=== PATIENT | male | born 2000 | race African-American/Black ===

== ENCOUNTER 2024-11-17 20:47 | Emergency (ER) | payer MEDICAID, SELFPAY ==
[2024-11-17 20:56] VITALS: BP 135/92; PULSE 81; RESP 20; TEMP 36.3; O2SAT 100
--- NOTE | 2024-11-17 23:00 | PC.NURSE ---
pt to triage desk stating, I am going to leave I think I am feeling fine . pt left ambulatory with steady unassisted gat with chestnut counselor. pt appeared in no distress at this time. this rn explained the risks of leaving before seeing provider.
== END 2024-11-18 00:54 | disposition left against medical advice (07) ==
DX: R05.9 Cough, unspecified (principal)
CPT/HCPCS: 99199

== ENCOUNTER 2025-01-11 01:42 | Emergency (ER) | payer SELFPAY ==
--- OUTSIDE RECORDS SUMMARY | 2025-01-11 01:44 | XMS_ITS ---
Author Organization [facility] Address [address] [place] [address] Care Team Providers Care Warp Starter Name Role Phone Samuel Sheridan Primary Care Provider Kaelyn Miguel [phone] Allergies Allergen (clinical drug ingredient) Drug/Non Drug Allergy documented on EMR Reaction Allergy Type Onset Date Status No Known Drug Allergy Unknown Drug Allergy Active REASON FOR VISIT 2 Month Psych F/U & Med Refill Medications Medication SIG (Take, Route, Frequency, Duration) Notes Start Date End Date Status Divalproex Sodium 500 MG 1 tablet Orally twice a day for 30 days Active FLUoxetine HCl 20 MG 1 capsule Orally On ce a day for 30 days Active Acetaminophen 500 MG 1 tablet as needed Orally every 6 hrs Active Albuterol Sulfate HFA 108 (90 Base) MCG/ACT 1 puff as needed Inhalation every 4 hrs 07/30/2024 Active Social History Tobacco Use: Social History Observation Description Date Details (start date - stop date) Never Smoker NA - NA Sex Assigned At : Social History Observation Description Sex Assigned At Male Tobacco Control (Standard) Question Answer Notes Tobacco use: Nonsmoker Vital Signs Weight 141.2 lbs 12/23/2024 Height 72 in 12/23/2024 BMI 19.15 kg/m2 12/23/2024 Blood pressure systolic 126 mm Hg 12/23/19 25 Blood pressure diastolic 76 mm Hg 025 Heart Rate 85 /min 12/23/2024 Oximetry 98 % 12/23/2024 Encounters Encounter Location Date Provider Diagnosis [facility] [address] [place] [address] 12/23/2024 Kaelyn Miguel Bipolar 1 disorder F31.9 Assessments Encounter Date Diagnosis (ICD Code) Assessment Notes Treatment Notes Treatment Clinical Notes Section Notes 12/23/2024 Bipolar 1 disorder (ICD-10 - F31.9) Continue current medications. Labs ordered. Continue services as scheduled. May self-administer medications or be administered own oral medications per [facility] protocols. Provided informed consent with understanding of side effects, adverse effects, risks and benefits as well as alternative treatments as previously discussed and with the above recommended medications & other aspects of the treatment program. Agrees to return sooner if symptoms worsen or suicidal or homicidal ideations occur. Plan Of Treatment Medication Medication Name Sig Start Date Stop Date Notes Divalproex Sodium 500 MG 1 tablet Orally twice a day for 30 days FLUoxetine HCl 20 MG 1 capsule Orally On ce a day for 30 days Treatment Notes Assessment Notes Bipolar 1 disorder Continue current medications. Labs ordered. Continue services as scheduled. May self-administer medications or be administered own oral medications per [facility] protocols. Provided informed consent with understanding of side effects, adverse effects, risks and benefits as well as alternative treatments as previously discussed and with the above recommended medications & other aspects of the treatment program. Agrees to return sooner if symptoms worsen or suicidal or homicidal ideations occur. Future Test Test Name Order Date Valproic Acid (Depakote)(R),S 12/23/2024 Next Appt Details Follow Up: 3 Months, Reason: Medication management - can be telehealth appt. 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 Was hospitalized N o. D epression Screening: PHQ-9 L ittle interest or pleasure in doing things?Several days F eeling down, depressed, or hopeless M ore than half the days T rouble falling or staying asleep, or sleeping too much S everal days F eeling tired or having little energy N ot at all P oor appetite or overeating N ot at all F eeling bad about yourself or that you are a failure, or have let yourself or your family down N ot at all T rouble concentrating on things, such as reading the newspaper or watching television N ot at all M oving or speaking so slowly that other people could have noticed; or the opposite, being so fidgety or restless that you have been moving around a lot more than usual N ot at all T houghts that you would be better off or of hurting yourself in some way N ot at all T otal Score 4 I nterpretation M inimal Depression Intervention D epression Screening Findings N egative F ollow-Up for Depression P natalie is admitted to a [facility] unit where their mental health is monitored, No Referral necessary, patient involved in behavioral health treatment, Prescribed psychotropic medications A bnormal Involuntary Movement Scale: Facial and Oral Movements M uscles of Facial Expression 0 - None L ips and Perioral Area 0 - None J aw 0 - None T ongue 0 - None Extremity Movements U pper (arms, wrists, hands, fingers) 0 - None L ower (legs, knees, ankles, toes) 0 - None Trunk Movements N judy, Shoulders and hips 0 - None Global Judgement S everity of abnormal movements overall 0 - None I ncapacitation due to abnormal movements 0 - None P atient's awareness of abnormal movements?0- No Awareness Dental Status C urrent problems with teeth and/or dentures?No A re dentures usually worn? N o E ndentia N o D o movements disappear with sleep? N o P sych F/U: Patient presents for psychiatric follow-up visit. Changes since last visit?: H e states there is nothing new. States medications are working well. States moods are stable. . Coping skills? M usic. . Effectiveness of medications: Y es, patient reports they are effective. Medication Adherence: R eports missing doses of medications.. Side effects to medications?: , Denies side effects to medications. Sleep: A ppropriate sleep. Appetite A ppropriate appetite. Depression (10 = most depressed) 0 /10. Anxiety (10 = most anxious) 0 /10. Anger/Irritability (10 is highest): D enies. Suicidal ideation: D enies suicidal ideation.. Homicidal ideation: D enies homicidal ideation.. Hallucinations D enies hallucinations, Denies Paranoia.? Medical concerns or hospitalizations? N o medical concerns.? Therapy? N o. Goals: g etting a car. Are you satisfied with the medication? , Yes. C SSRS Interpretation and Follow Up Plan: CSSRS Interpretation and Follow Up Plan C SSRS Screen documented using SF Y es R isk Disposition from SF L ow - No Follow Up Plan Required F ollow Up Plan N o Follow Up Plan required at this time. S creening: [place] Suicide Severity Rating Scale (LF) D o you want to initiate with S creener form 1 . Wish to be : Have you wished you were or wished you could go to sleep and not wake up? N o 2 . Suicidal Thoughts: Have you actually had any thoughts of killing yourself? N o 6 . Suicide Behaviour: Have you ever done anything,started to do anything, or prepared to end your life? Y es W ere any of these in the past 3 months? N o * ROS: P sych ROS: Constitutional D enies. E yes D enies. E ars/Nose/Mouth/Throat D enies. R espiratory D enies. A llergic/Immunologic D enies.?Cardiovascular D enies. G I D enies. G U R eports, G roin pain. M usculoskeletal D enies. N eurological D enies. I ntegumentary D enies. E ndocrine D enies. H ematological/Lymphatic D enies. * Medical History: * Surgical History: D enies Past Surgical History * Hospitalization/Major Diagno stic Procedure: G ateway 2022 * Family History: F ather: alive. M other: alive, diagnosed with Bipolar disorder, unspecified. 2 brother(s) , 4 sister(s) - healthy. . 4 sisters and 2 brothers- no health issues. * Social History: P rimary Social History: L iving Arrangement L iving Arrangement: P ublic Housing I s this a supportive environment? Y es Alcohol Use A lcohol Use Frequency: N ever Illicit Substance Usage I llicit Substance Usage: N o Denies Employment Status E mployment Status: U nemployed T obacco Use: T obacco Control (Standard) T obacco use: N onsmoker M iscellaneous: M ethod of learning P referred method of learning: R eading * Medications: T akingAcetaminophen 500 MG Tablet 1 tablet as needed Orally every 6 hrs Albuterol Sulfate HFA 108 (90 Base) MCG/ACT Aerosol Solution 1 puff as needed Inhalation every 4 hrs Divalproex Sodium 500 MG Tablet Delayed Release 1 tablet Orally twice a day FLUoxetine HCl 20 MG Capsule 1 capsule Orally Once a day Taking Acetaminophen 500 MG Tablet 1 tablet as needed Orally every 6 hrs Taking Albuterol Sulfate HFA 108 (90 Base) MCG/ACT Aerosol Solution 1 puff as needed Inhalation every 4 hrs Taking Divalproex Sodium 500 MG Tablet Delayed Release 1 tablet Orally twice a day Taking FLUoxetine HCl 20 MG Capsule 1 capsule Orally Once a day DiscontinuedOLANZapine 10 MG Tablet 1 tablet Orally twice a day Medication List reviewed and reconciled with the patientDiscontinued OLANZapine 10 MG Tablet 1 tablet Orally twice a day Medication List reviewed and reconciled with the patient * Allergies: N o Known Drug Allergyno[Allergies Verified] Objective: * Vitals: I nitials: NW, Wt:141.2, Ht: 72, BMI:19.15, BP:126/76, HR:85, Oxygen sat %:98. * Examination: M ental Status Exam: SENSORIUM AND COGNITION Alert , Oriented to Person , Oriented to Place , Oriented to Time , Oriented to Situation. ATTENTION AND CONCENTRATION N o deficits. APPEARANCE A ppropriate. ATTITUDE AND BEHAVIOR C ooperative , Receptive. MEMORY I mmediate , Recent , Remote. EYE CONTACT G ood. AFFECT B road/Full. MOOD E uthymic. SPEECH QUANTITY A ppropriate. SPEECH QUALITY S pontaneous , Fluent , Appropriate volume.? THOUGHT PROCESS C oherent and goal directed. THOUGHT CONTENT A ppropriate - WNL , No evidence of delusional content , No reports paranoia. LANGUAGE A ppropriate- WNL. MOTOR ACTIVITY N ormal gait , Goal directed , Relaxed. SUICIDAL IDEATION D enies suicidal ideation. HOMICIDAL IDEATION D enies homicidal ideation. HALLUCINATIONS D enies hallucinations. INSIGHT F air. JUDGMENT F air. FUND OF KNOWLEDGE F air. ABILITY TO PARTICIPATE IN TREATMENT M oderate. WILLINGNESS TO PARTICIPATE IN TREATMENT M oderate. SIGNIFICANT FINDINGS REGARDING MENTAL STATUS N one. ? Assessment: * Assessment: 1. B ipolar 1 disorder - F31.9 (Primary) Plan: * Treatment: * Procedure Codes: * Follow Up: 3 Months (Reason: Medication management - can be telehealth appt.) * * LLURGICAL INSPECTOR Sign off status: Completed true * Provider: Jose Enrique Miguel DNP, PMHNP-, BUSINESS TRANSFORMATION CONSULTANT Date: 0 12/23/2024 Generated for Printing/FaWhere/eTransmitting on: 0 01/11/2025 01:44 AM METALLURGICAL INSPECTOR History and Physical Notes * HPI (History of Present Illness) Category Sub-Category Detail Notes Category Not es Interim History Was hospitalized No Emergency room visit Yes Depression Screening PHQ-9 Little inte rest or pleasure in doing things: Several days Feeling down, depressed, or hopeless: Mo re than half the days Trouble falling or staying asleep, or sl eeping too much: Several days Feeling tired or having little energy: N ot at all Poor appetite or overeating: Not at all Feeling bad about yourself o r that you are a failure, or have let yourself or your family down: Not at all Trouble concentrating on thi ngs, such as reading the newspaper or watching television: Not at all Moving or speaking so slowly that other people could have noticed; or the opposite, being so fidgety or restless that you have been moving around a lot more than usual: Not at all Thoughts that you would be b good off or of hurting yourself in some way: Not at all Total Score: 4 Interpretation: Minimal Depression Intervention Depression Screening Findings: N egative Follow-Up for Depression: Mil sherman is admitted to a [facility] unit where their mental health is monitored, No Referral necessary, patient involved in behavioral health treatment, Prescribed psychotropic medications Abnormal Involuntary Movement Scale Facial and Oral Movements Muscles of Facial Expression: 0- None Lips and Perioral Area: 0- None Jaw: 0- None Tongue: 0- None Extremity Movements Upper (arms, wrists, hands, fingers): 0- None Lower (legs, knees, ankles, toes): 0- No ne Trunk Movements Neck, Shoulders and hips: 0- Non e Global Judgement Severity of abnormal movements overall: 0- None Incapacitation due to abnormal movements : 0- None Patient's awareness of abnormal movement s: 0- No Awareness Dental Status Current problems with teeth and/ or dentures: No Are dentures usually worn?: No Endentia: No Do movements disappear with sleep?: No Subjective Experience Psych F/U Changes since last visit?: He st ates there is nothing new. States medications are working well. States moods are stable. Effectiveness of medications: Yes, patie nt reports they are effective Medication Adherence: Reports missing do ses of medications. Side effects to medications?: , Denies s tiffanie effects to medications Goals: getting a car Coping skills? Music. Sleep: Appropriate sleep Appetite Appropriate appetite Depression (10 = most depressed) 0/10 Anxiety (10 = most anxious) 0/10 Anger/Irritability (10 is highest): Jerrod es Suicidal ideation: Denies suicidal idea tion. Homicidal ideation: Denies homicidal tiffanie ation. Hallucinations Denies hallucination s, Denies Paranoia Medical concerns or hospitalizations? No medical concerns Therapy? No Are you satisfied with the medication? , Yes Screening [place] Suicide Sev erity Rating Scale (LF) Do you want to initiate with: Screener form 1. Wish to be : Have you wished you were or wished you could go to sleep and not wake up?: No 2. Suicidal Thoughts: Have you actually had any thoughts of killing yourself?: No 6. Suicide Behavior Question: Have you ever done anything,started to do anything, or prepared to end your life?: Yes Were any of these in the past 3 months?: No CSSRS Interpretation and Follow Up Plan CSSRS Interpretation and Follow Up Plan CSSRS Screen documented using SF: Yes Risk Disposition from SF: Low - No Follo w Up Plan Required Follow Up Plan: No Follow Up Plan requir ed at this time. Examination Category Sub-Category Detail Notes Category Not es Mental Status Exam SENSORIUM AND COGNITION Alert , Oriented to Person , Oriented to Place , Oriented to Time , Oriented to Situation ATTENTION AND CONCENTRATION No deficits APPEARANCE Appropriate ATTITUDE AND BEHAVIOR Cooperative , Rece ptive MEMORY Immediate , Recent , Remote EYE CONTACT Good AFFECT Broad/Full MOOD Euthymic SPEECH QUANTITY Appropriate SPEECH QUALITY Spontaneous , Fluent , Appropriate volume THOUGHT PROCESS Coherent and goal di rected THOUGHT CONTENT Appropriate - WNL , No evidence of delusional content , No reports paranoia MOTOR ACTIVITY Normal gait , Goal d irected , Relaxed SUICIDAL IDEATION Denies suicidal idea tion HOMICIDAL IDEATION Denies homicidal tiffanie ation HALLUCINATIONS Denies hallucination s INSIGHT Fair JUDGMENT Fair FUND OF KNOWLEDGE Fair ABILITY TO PARTICIPATE IN TREATMENT Mode rate WILLINGNESS TO PARTICIPATE IN TREATMENT Moderate SIGNIFICANT FINDINGS REGARDI NG MENTAL STATUS None LANGUAGE Appropriate- WNL
--- OUTSIDE RECORDS SUMMARY | 2025-01-11 01:45 | XMS_ITS | Patient Health Record ---
Author Organization [facility] Address [address] [place] [address] Care Team Providers Care Customer Care Associate Name Role Phone Samuel Sheridan Primary Care Provider Kaelyn Miguel Unavailable [phone] Christi Flores Unavailable [phone] Allergies Allergen (clinical drug ingredient) Drug/Non Drug Allergy documented on EMR Reaction Allergy Type Onset Date Status No Known Drug Allergy Unknown Drug Allergy Active Results Component Value Reference Range Notes Vitamin D, 25-Hydroxy* Reviewed date:08/20/2024 04:02:04 PM Interpretation: Performing Lab: Notes/Report: HIV Screen *HIV 1, 2 Ab, p24 Ag Reviewed date:08/20/2024 10:33:55 AM Interpretation: Performing Lab: Notes/Report: Vitamin B12* Reviewed date:08/20/2024 04:02:08 PM Interpretation: Performing Lab: Notes/Report: Valproic Acid (Depakote)(R), S Reviewed date:08/20/2024 04:02:14 PM Interpretation: Performing Lab: Notes/Report: TSH+Free T4* Reviewed date:08/20/2024 04:02:19 PM Interpretation: Performing Lab: Notes/Report: Lipid Panel* Reviewed date:08/20/2024 04:02:23 PM Interpretation: Performing Lab: Notes/Report: Hemoglobin A1c* Reviewed date:08/20/2024 04:02:26 PM Interpretation: Performing Lab: Notes/Report: CMP 14 Comprehensive Metabol ic Panel* Reviewed date:08/20/2024 04:02:30 PM Interpretation: Performing Lab: Notes/Report: CBC With Differential/Platel et* Reviewed date:08/20/2024 04:02:39 PM Interpretation: Performing Lab: Notes/Report: HIV Screen *HIV 1, 2 Ab, p24 Ag Reviewed date:08/20/2024 04:01:25 PM Interpretation: Performing Lab:[address], Phone - [phone], Director - [facility] Notes/Report: A duplicate report has been generated due to demographic updates. HIV Ab/p24 Ag Screen Non Reactive Non Reactive HIV-1/HIV-2 antibodies and HIV-1 p24 antigen were NOT detected. There is no laboratory evidence of HIV infection. HIV Negative Hemoglobin A1c* Reviewed date:08/20/2024 04:01:36 PM Interpretation: Performing Lab:[address], Phone - [phone], Director - [facility] Notes/Report: A duplicate report has been generated due to demographic updates. Hemoglobin A1c 5.8 4.8-5.6 % . Prediabetes: 5.7 - 6.4 Diabetes: >6.4 Glycemic control for adults with diabetes: <7.0 Vitamin B12* Reviewed date:08/20/2024 04:01:21 PM Interpretation: Performing Lab:[address], Phone - [phone], Director - [facility] Notes/Report: A duplicate report has been generated due to demographic updates. Vitamin B12 754 376-7759 pg/mL CBC With Differential/Platel et* Reviewed date:08/20/2024 04:01:48 PM Interpretation: Performing Lab:[address], Phone - [phone], Director - [facility] Notes/Report: A duplicate report has been generated due to demographic updates. WBC 7.5 3.4-10.8 x10E3/uL RBC 5.25 4.14-5.80 x10E6/uL Hemoglobin 15.8 13.0-17.7 g/dL Hematocrit 48.6 37.5-51.0 % MCV 93 79-97 fL MCH 30.1 26.6-33.0 pg MCHC 32.5 31.5-35.7 g/dL RDW 13.5 11.6-15.4 % Platelets 244 150-450 x10E3/uL Neutrophils 60 Not Estab. % Lymphs 26 Not Estab. % Monocytes 10 Not Estab. % Eos 3 Not Estab. % Basos 0 Not Estab. % Neutrophils (Absolute) 4.6 1.4-7.0 x10E3/uL Lymphs (Absolute) 1.9 0.7-3.1 x10E3/uL Monocytes(Absolute) 0.7 0.1-0.9 x10E3/uL Eos (Absolute) 0.2 0.0-0.4 x10E3/uL Baso (Absolute) 0.0 0.0-0.2 x10E3/uL Immature Granulocytes 1 Not Estab. % Immature Grans (Abs) 0.1 0.0-0.1 x10E3/uL Vitamin D, 25-Hydroxy* Reviewed date:08/20/2024 04:01:29 PM Interpretation: Performing Lab:[facility] [place] [address] [facility], Phone - [phone], [facility] Notes/Report: A duplicate report has been generated due to demographic updates. Vitamin D, 25-Hydroxy 27.1 30.0-100.0 ng/mL deficiency: an Endocrine Society clinical practice guideline. JCEM. 2010; 96(7):1911-30. Vitamin D deficiency has been defined by the [place] of [employer] and an Endocrine Society practice guideline as a level of serum 25-OH vitamin D less than 20 ng/mL (1,2). The Endocrine Society went on to further define vitamin D insufficiency as a level between 21 and 29 ng/mL (2). 1. IOM ([place] of Medicine). 2010. Dietary reference intakes for calcium and D. [place]: The National Academies Press. 2. Kun MF, Davis PAYNE, Elsie MEDINA, et al. Evaluation, treatment, and prevention of vitamin D TSH+Free T4* Reviewed date:08/20/2024 04:01:56 PM Interpretation: Performing Lab:[facility] [place] [address] [facility], [place], Phone - [phone], [facility] - [facility] Notes/Report: A duplicate report has been generated due to demographic updates. TSH 1.980 0.450-4.500 uIU/mL T4,Free(Direct) 0.81 0.82-1.77 ng/dL Lipid Panel* Reviewed date:08/20/2024 04:01:42 PM Interpretation: Performing Lab:[facility], [address] [place] [address], Phone - [phone], Director - Eduarda Notes/Report: A duplicate report has been generated due to demographic updates. Cholesterol, Total 167 100-199 mg/dL Triglycerides 71 0-149 mg/dL HDL Cholesterol 77 >39 mg/dL VLDL Cholesterol Moreno 14 5-40 mg/dL LDL Chol Calc (NIH) 76 0-99 mg/dL CMP 14 Comprehensive Metabol ic Panel* Reviewed date:08/20/2024 04:01:45 PM Interpretation: Performing Lab:[facility], [address] [facility], Phone - [phone], Director - Eduarda Notes/Report: A duplicate report has been generated due to demographic updates. Glucose 94 70-99 mg/dL BUN 12 6-20 mg/dL Creatinine 0.87 0.76-1.27 mg/dL eGFR 125 >59 mL/min/1.73 BUN/Creatinine Ratio 14 9-20 Sodium 141 134-144 mmol/L Potassium 4.3 3.5-5.2 mmol/L Chloride 102 96-106 mmol/L Carbon Dioxide, Total 20 20-29 mmol/L Calcium 9.9 8.7-10.2 mg/dL Protein, Total 7.5 6.0-8.5 g/dL Albumin 4.9 4.3-5.2 g/dL Globulin, Total 2.6 1.5-4.5 g/dL Bilirubin, Total 0.5 0.0-1.2 mg/dL Alkaline Phosphatase 139 44-121 IU/L AST (SGOT) 54 0-40 IU/L ALT (SGPT) 36 0-44 IU/L Valproic Acid (Depakote)(R), S Reviewed date:09/29/2024 01:28:39 PM Interpretation: Performing Lab: Notes/Report: Valproic Acid (Depakote)(R), S Reviewed date:09/29/2024 01:29:22 PM Interpretation: Performing Lab:[facility] [place], [address] [facility], [place], Phone - [phone], Director - Eduarda Notes/Report: Valproic Acid (Depakote)(R),S 90 50-100 ug/mL Detection Limit = 4 <4 indicates None Detected . Toxicity may occur at levels of 100-500. Measurements of free unbound valproic acid may improve the assess- ment of clinical response. Valproic Acid (Depakote)(R), S Reviewed date:08/20/2024 04:01:17 PM Interpretation: Performing Lab:[facility], [address] [facility], [place], Phone - [phone], Director - Eduarda Notes/Report: A duplicate report has been generated due to demographic updates. Valproic Acid (Depakote)(R),S 26 50-100 ug/mL Detection Limit = 4 <4 indicates None Detected . Toxicity may occur at levels of 100-500. Measurements of free unbound valproic acid may improve the assess- ment of clinical response. Reason For Referral No Information Medications Medication SIG (Take, Route, Frequency, Duration) [...] (Standard) Question Answer Notes Tobacco use: Nonsmoker Problems Problem Type SNOMED Code ICD Code Onset Dates Problem Status W/U Status Risk Notes Problem Bipolar 1 disorder (939588915) Bipolar 1 disorder (F31.9) Active confirmed Problem 773970543 Mild intermitten t asthma without complication (J45.20) Active confirmed Vital Signs Heart Rate 85 /min 12/23/2024 Temperature 97.8 degrees Fahrenheit 10/28/2024 Respiratory Rate 16 /min 07/30/2024 Blood pressure diastolic 76 mm Hg 12/23/2024 Oximetry 98 % 12/23/2024 Height 72 in 12/23/2024 Blood pressure systolic 126 mm Hg 12/23/2024 Weight 141.2 lbs 12/23/2024 BMI 19.15 kg/m2 12/23/2024 Encounters Encounter Location Date Provider Diagnosis [address] [place] [address] 07/29/2024 Kaelyn Miguel Bipolar 1 disorder F31.[address] [place] [address] 07/30/2024 Samuel Sheridan Encounter to [facility] Z76.89 ; Right testicular pain N50.811 ; Left testicular pain N50.812 ; Mild intermittent asthma without complication J45.20 and Screening for HIV (human immunodeficiency virus) Z11.[address] [place] [address] 08/17/2024 Samuel Sheridan [facility] [place] [address] 09/02/2024 Kaelyn Miguel Bipolar 1 disorder F31.[address] [place] [address] 09/21/2024 Christi Flroes [place] [address] [place] [address] 10/28/2024 Kaelyn Miguel Bipolar 1 disorder F31.9 [place] [address] [place] [address] 12/23/2024 Kaelyn Miguel Bipolar 1 disorder F31.[address] [place] [address] 10/01/2024 Kaelyn Miguel Assessments Encounter Date Diagnosis (ICD Code) Assessment Notes Treatment Notes Treatment Clinical Notes Section Notes 10/28/2024 Bipolar 1 disorder (ICD-10 - F31.9) Stop Olanzapine. Monitor for resolution of upset stomach. Labs ordered. May self-administer medications or be administered own oral medications per [place] protocols. Provided informed consent with understanding of side effects, adverse effects, risks and benefits as well as alternative treatments as previously discussed and with the above recommended medications & other aspects of the treatment program. Agrees to return sooner if symptoms worsen or suicidal or homicidal ideations occur. 12/23/2024 Bipolar 1 disorder (ICD-10 - F31.9) Continue current medications. Labs ordered. Continue services as scheduled. May self-administer medications or be administered own oral medications per [place] protocols. Provided informed consent with understanding of side effects, adverse effects, risks and benefits as well as alternative treatments as previously discussed and with the above recommended medications & other aspects of the treatment program. Agrees to return sooner if symptoms worsen or suicidal or homicidal ideations occur. 07/30/2024 Encounter to establish care (ICD-10 - Z76.89) 07/30/2024 Right testicular pain (ICD-10 - N50.811) Exam grossly nl, given ongoing pain, will get ultrasound. 07/29/2024 Bipolar 1 disorder (ICD-10 - F31.9) Continue current medications that he was taking in May, restarting the olanzapine as well. He would like to see a dentist. Reports that he has asthma and had an inhaler in the past. Can be assessed by medical tomorrow. Labs ordered. May self-administer medications or be administered own oral medications per [place] protocols. Provided informed consent with understanding of side effects, adverse effects, risks and benefits as well as alternative treatments as previously discussed and with the above recommended medications & other aspects of the treatment program. Agrees to return sooner if symptoms worsen or suicidal or homicidal ideations occur. 09/02/2024 Bipolar 1 disorder (ICD-10 - F31.9) Continue current medications. Continue services as scheduled. Add Depakote level. Labs completed recently. May self-administer medications or be administered own oral medications per [place] protocols. Provided informed consent with understanding of side effects, adverse effects, risks and benefits as well as alternative treatments as previously discussed and with the above recommended medications & other aspects of the treatment program. Agrees to return sooner if symptoms worsen or suicidal or homicidal ideations occur. 07/30/2024 Left testicular pain (ICD-10 - N50.812) Exam grossly nl, given ongoing pain, will get ultrasound. 07/30/2024 Mild intermittent asthma without complication (ICD-10 - J45.20) Mild, prn inhaler rx. 07/30/2024 Screening for HIV (human immunodeficiency virus) (ICD-10 - Z11.4) Add to previously ordered labs. Plan Of Treatment Future Test Test Name Order Date Valproic Acid (Depakote)(R),S 12/23/2024 Insurance Providers Payer Name Payer Address Payer Phone Subscriber Number Group Number Insured Name Patient Relationship to Insured Coverage Start Date Coverage End Date [facility] [id number] [facility] [address] [place] [address] [id number] Richard, Zechariah Self - patient is the insured 4 [facility] [address] [place] [address] [address] [place] [address] [id number] Richard, Zechariah Self - patient is the insured 4 Medical (General) History Medical History History ICD Code Asthma bipolar disorder Groin injury Hospitalization History Reason Date(Month/Year) [place] 2022
--- OUTSIDE RECORDS SUMMARY | 2025-01-11 01:45 | XMS_ITS ---
Author Organization [facility] Address [address] [place] [address] Care Team Providers Care Desizing Machine Offbearer Name Role Phone Samuel Sheridan Primary Care Provider Kaelyn Miguel Unavailable [phone] Allergies Allergen (clinical drug ingredient) Drug/Non Drug Allergy documented on EMR Reaction Allergy Type Onset Date Status No Known Drug Allergy Unknown Drug Allergy Active REASON FOR VISIT not taking meds; med making stomach hurt Medications Medication SIG (Take, Route, Frequency, Duration) Notes Start Date End Date Status Divalproex Sodium 500 MG 1 tablet Orally twice a day for 30 days Active Acetaminophen 500 MG 1 tablet as needed Orally every 6 hrs Active FLUoxetine HCl 20 MG 1 capsule Orally On ce a day for 30 days Active OLANZapine 10 MG 1 tablet Orally twic e a day for 30 days Active Albuterol Sulfate HFA 108 (90 Base) MCG/ACT 1 puff as needed Inhalation every 4 hrs 07/30/2024 Active Social History Tobacco Use: Social History Observation Description Date Details (start date - stop date) Never Smoker NA - NA Sex Assigned At : Social History Observation Description Sex Assigned At Male Tobacco Control (Standard) Question Answer Notes Tobacco use: Nonsmoker Vital Signs Weight 171.2 lbs 10/28/2024 Height 72 in 10/28/2024 BMI 23.22 kg/m2 10/28/2024 Blood pressure systolic 130 mm Hg 10/28/20 24 Blood pressure diastolic 84 mm Hg 024 Heart Rate 82 /min 10/28/2024 Oximetry 98 % 10/28/2024 Temperature 97.8 degrees Fahrenheit 10/28/20 24 Encounters Encounter Location Date Provider Diagnosis [facility] [place] [address] 10/28/2024 Kaelyn Miguel Bipolar 1 disorder F31.9 Assessments Encounter Date Diagnosis (ICD Code) Assessment Notes Treatment Notes Treatment Clinical Notes Section Notes 10/28/2024 Bipolar 1 disorder (ICD-10 - F31.9) Stop Olanzapine. Monitor for resolution of upset stomach. Labs ordered. May self-administer medications or be administered own oral medications per [place] protocols. Provided informed consent with understanding of [...] Treatment Notes Assessment Notes Bipolar 1 disorder Stop Olanzapine. Monitor for resolution of upset stomach. Labs ordered. May self-administer medications or be administered own oral medications per [place] protocols. Provided informed consent with understanding of side effects, adverse effects, risks and benefits as well as alternative treatments as previously discussed and with the above recommended medications & other aspects of the treatment program. Agrees to return sooner if symptoms worsen or suicidal or homicidal ideations occur. Next Appt Details Follow Up: 2 Months, Reason: Medication management - can be telehealth appt. Progress Notes * MonroeVannessaOB:2000 ( 23 yo M)Acc No.[id number]:10/28/2024 Patient: Zechariah CAMARGO Provider: Jose Enrique Miguel, MAJOR, PMHNP-BC, PAPER MILL SUPERINTENDENT :2000 A ge:23 Y S ex:Male Date:10/28/2024 Address:[address] [place] [address], [address] Pcp:Samuel Sheridan Check In:09:16 AM TRAVELING NURSE Subjective: * Chief Complaints: * N ot taking meds; med making stomach hurt * HPI: A bnormal Involuntary Movement Scale: Facial and [...] o movements disappear with sleep? N o C SSRS Interpretation and Follow Up Plan: CSSRS Interpretation and Follow Up Plan. CSSRS Interpretation and Follow Up Plan M oderate or High risk requires selection of a follow up plan C SSRS No/Low: intervention not needed at this time P sych F/U: Patient presents for psychiatric follow-up visit. Changes since last visit?: H e states there is nothing new. Some days missing medication due to stomach ache after taking medicaitons. . Coping skills? W alking. Video games. tv. Music. Effectiveness of medications: Y es, patient reports they are effective. Medication Adherence: , Reports missing doses of medications.. Side effects to medications?: , Admits side effects to medications (specify): Stomach upset. No n/v. Sleep: A ppropriate sleep. Appetite A ppropriate appetite. Depression (10 = most depressed) 0 /10. Anxiety (10 = most anxious) 0 /10. Anger/Irritability (10 is highest): D enies. Suicidal ideation: D enies suicidal ideation.. Homicidal ideation: D enies homicidal ideation.. Hallucinations D enies hallucinations, Denies Paranoia.? Medical concerns or hospitalizations? N o medical concerns.? Therapy? N o. Goals: C ontinuing medication without sie effects. . ? Are you satisfied with the medication? N o, I would like to change the medication or dose.. S creening: [place] Suicide Severity Rating Scale (LF) D o [...] in the past 3 months? N o I nterim History: Emergency room visit N o. Was hospitalized N o. D epression Screening: PHQ-9 L ittle interest or pleasure in doing things?Several days F eeling down, depressed, or hopeless N ot at all T rouble falling or staying asleep, or sleeping too much S everal days F eeling tired or having little energy S everal days P oor appetite or overeating N ot at all F eeling bad about yourself or that you are a failure, or have let yourself or your family down S everal days T rouble concentrating on things, such as reading the newspaper or watching television N ot at all M oving or speaking so slowly that other people could have noticed; or the opposite, being so fidgety or restless that you have been moving around a lot more than usual S ever T houghts that you would be better off or of hurting yourself in some way N ot at all T otal Score 5 I nterpretation M ild Depression Intervention D epression Screening Findings P ositive F ollow-Up for Depression P natalie is admitted to a [facility] unit where their mental health is monitored, Prescribed psychotropic medications * ROS: P sych ROS: Constitutional D [...] of learning P referred method of learning: D iscussion * Medications: T akingAcetaminophen 500 MG Tablet 1 tablet as needed Orally every 6 hrs Albuterol Sulfate HFA 108 (90 Base) MCG/ACT Aerosol Solution 1 puff as needed Inhalation every 4 hrs Divalproex Sodium 500 MG Tablet Delayed Release 1 tablet Orally twice a day FLUoxetine HCl 20 MG Capsule 1 capsule Orally Once a day OLANZapine 10 MG Tablet 1 tablet Orally twice a day Medication List reviewed and reconciled with the patientTaking Acetaminophen 500 MG Tablet 1 tablet as needed Orally every 6 hrs Taking Albuterol Sulfate HFA 108 (90 Base) MCG/ACT Aerosol Solution 1 puff as needed Inhalation every 4 hrs Taking Divalproex Sodium 500 MG Tablet Delayed Release 1 tablet Orally twice a day Taking FLUoxetine HCl 20 MG Capsule 1 capsule Orally Once a day Taking OLANZapine 10 MG Tablet 1 tablet Orally twice a day Medication List reviewed and reconciled with the patient * Allergies: N o Known Drug Allergyno[Allergies Verified] Objective: * Vitals: I nitials: NW, Wt:171.2, Ht: 72, BMI:23.22, BP:130/84, HR:82, Oxygen sat %:98, Temp:97.8. * Examination: M ental Status Exam: SENSORIUM [...] Treatment: * Procedure Codes: * Follow Up: 2 Months (Reason: Medication management - can be telehealth appt.) * * ELING NURSE Sign off status: Completed true * Provider: Jose Enrique Miguel DNP, PMINNAP-BC, PAPER MILL SUPERINTENDENT Date: 12/29/2023 Generated for Printing/Faxing/eTransmitting on: 0 01/11/2025 01:45 AM TRAVELING NURSE History and Physical Notes * HPI (History of Present Illness) Category Sub-Category Detail Notes Category Not es Interim History Was hospitalized No Emergency room visit No Depression Screening PHQ-9 Little inte rest or pleasure in doing things: Several days Feeling down, depressed, or hopeless: No t at all Trouble falling or staying asleep, or sl eeping too much: Several days Feeling tired or having little energy: S everal days Poor appetite or overeating: Not at all Feeling bad about yourself o r that you are a failure, or have let yourself or your family down: Several days Trouble concentrating on thi ngs, such as reading the newspaper or watching television: Not at all Moving or speaking so slowly that other people could have noticed; or the opposite, being so fidgety or restless that you have been moving around a lot more than usual: Several days Thoughts that you would be b good off or of hurting yourself in some way: Not at all Total Score: 5 Interpretation: Mild Depression Intervention Depression Screening Findings: P ositive Follow-Up for Depression: Mil sherman is admitted to a [facility] unit where their mental health is monitored, Prescribed psychotropic medications Abnormal Involuntary Movement Scale [...] He st ates there is nothing new. Some days missing medication due to stomach ache after taking medicaitons. Effectiveness of medications: Yes, patie nt reports they are effective Medication Adherence: , Reports missing doses of medications. Side effects to medications?: , Admits s tiffanie effects to medications (specify): Stomach upset. No n/v Goals: Continuing medicatio n without sie effects. Coping skills? Walking. Video games . tv. Music Sleep: Appropriate sleep Appetite Appropriate appetite Depression (10 = most depressed) 0/10 Anxiety (10 = most anxious) 0/10 Anger/Irritability (10 is highest): Jerrod es Suicidal ideation: Denies suicidal idea tion. Homicidal ideation: Denies homicidal tiffanie ation. Hallucinations Denies hallucination s, Denies Paranoia Medical concerns or hospitalizations? No medical concerns Therapy? No Are you satisfied with the medication? N o, I would like to change the medication or dose. Screening [place] Suicide Sev erity Rating Scale (LF) Do [...] these in the past 3 months?: No Do Not Use CSSRS Interpretation and Follow Up Plan CSSRS Interpretation and Follow Up Plan Moderate or High risk requires selection of a follow up plan: CSSRS No/Low: intervention not needed at this time Examination Category Sub-Category Detail Notes Category Not [...]
--- OUTSIDE RECORDS SUMMARY | 2025-01-11 01:45 | XMS_ITS ---
Author Organization [facility] Address [address] [place] [address] Care Team Providers Care Supervisor Industrial Arts Education Name Role Phone Samuel Sheridan Primary Care Provider Kaelyn Miguel [phone] REASON FOR VISIT Medication time Social History Sex Assigned At : Social History Observation Description Sex Assigned At Male Encounters Encounter Location Date Provider Diagnosis [address] [place] [address] 10/01/2024 Kaelyn Miguel Plan Of Treatment No Information Progress Notes * Idris SHEPARDOB:2000 ( 23 yo M)Acc No.[id number]:10/01/2024 Patient: Zechariah CAMARGO :2000 A ge:23 Y S ex:Male Address:[address] [facility], [place] [address] * true * Date: Generated for Solomoni ng/Farichardg/eTransmitting on: 0 01/11/2025 01:45 AM SEAM RUBBER
[2025-01-11 01:57] VITALS: BP 157/87; PULSE 58; RESP 16; TEMP 36.3; O2SAT 100
[2025-01-11] MEDS: LIDO 1%/EPINEPHRINE 1:100,000 20 ML VIAL (02:18)
--- NOTE | 2025-01-11 02:22 | ED_ITS ---
HPI - Wound/Laceration General Chief Complaint: Wound/Laceration Stated Complaint: lac to right hand and lac left forearm Time Seen by Provider: 01/11/25 02:21 Source: patient Mode of arrival: EMS Limitations: no limitations History of Present Illness HPI narrative: This is a 24-year-old male who presents to the ED via EMS for chief complaint of laceration injuries to the right palm and left forearm. Patient states that he was dancing in his apartment to [employer] when he tried a spin move that he could handle and ended up falling into the wall. He states there was a nail sticking out of the wall which caused the lacerations. He reports bleeding controlled on arrival with the gauze that EMS provided for him. He is unsure of his tetanus status. Related Data Allergies Allergy/AdvReac Type Severity Reaction Status Date / Time nkda Allergy Mild Uncoded 10/12/10 12:16 Review of Systems Review of Systems: All systems as dictated in HPI Exam Narrative: GENERAL: Well-appearing, well-nourished, and in no acute distress. MSK: Normal range of motion. No edema. SKIN: Very superficial 4 cm laceration to the left dorsal forearm. No active bleeding. 6 cm laceration to the right palm with n o active bleeding. Full range of motion of the right hand. NEURO: Alert and oriented x4. No focal deficits. PSYCH: Normal mood and affect. Course Vital Signs Vital signs: Vital Signs Temperature 97.3 F L 01/11/25 01:57 Pulse Rate 58 L 01/11/25 01:57 Respiratory Rate 16 01/11/25 01:57 Blood Pressure 157/87 H 01/11/25 01:57 Pulse Oximetry 100 01/11/25 01:57 Temperature 97.3 F L 01/11/25 01:57 Pulse Rate 58 L 01/11/25 01:57 Respiratory Rate 16 01/11/25 01:57 Blood Pressure 157/87 H 01/11/25 01:57 Pulse Oximetry 100 01/11/25 01:57 Procedures Laceration Laceration 1: Date: 01/11/25 Time: 02:29 Site: hand Side (If applicable): right Size (cm): 6 Description: linear Depth: simple, single layer Local Anesthetic: lidocaine 1% and with epi Amount of anesthesia used (mL): 2 Pre-repair: wound explored, irrigated extensively and deep structures intact ====== Skin Level ====== Skin layer closed with: nylon Size (cm): 5-0 Number of sutures: 7 Technique: simple, interrupted ====== Subcutaneous Layer ====== ====== Muscle Layer ====== ====== Tendon Layer ====== Laceration 2: Date: 01/11/25 Time: Site: upper extremity Side (If applicable): left Size (cm): 4 Description: linear Depth: simple, single layer Local Anesthetic: none Pre-repair: wound explored and irrigated ====== Skin Level ====== Skin layer closed with: steri strips (3) ====== Subcutaneous Layer ====== ====== Muscle Layer ====== ====== Tendon Layer ====== MDM - Wound/Laceration MDM Narrative Medical decision making narrative: This is a 24-year-old male who presents to the ED for chief complaint of supper laceration injuries to the right palm and left forearm after injury while in his apartment tonight. Please see HPI. Vitals are normal. Tdap updated today. Wound was well cleansed and irrigated here in the ED. right palm laceration was primarily closed with Ethilon sutures and left forearm laceration was very superficial in nature and only required Steri-Strips. Laceration instructions were given. Patient will be discharged in stable condition. Supportive measures discussed and return precautions given. Patient is understanding and agreeable with plan for discharge with PCP follow-up. Differential Diagnosis Differential diagnosis: Likely laceration, abrasion and avulsion of skin Discharge Plan Discharge Clinical Impression: Laceration Patient Disposition: Home, Self-Care Condition: Stable Instructions: Antibiotic Form, Laceration (ED) Additional Instructions: Keep wound clean and dry. Do not soak, take baths, or swim until wound is completely healed. If any signs of infection such as redness, swelling, increasing pain, drainage of purulent discharge, streaks up your extremity develop, seek medical attention immediately. Followup with your primary care provider in [7] days for suture removal. Patient Language: Jamaican Follow-up/Referrals: PHYSICIAN NOT ON STAFF,NONSTAFF [Primary Care Provider] - Time of Disposition: 02:27
[2025-01-11] MEDS: TETANUS,DIPHTHERIA,AC PERTUSSIS ADULT (0.5 ML) BOOSTRIX IM (02:34)
--- NOTE | 2025-01-11 03:07 | PC.NURSE ---
this rn attempted to reach out to [facility] at [phone] and also [phone]. both go to a voice mail saying they are closed. ED Charge notified that we are unable to reach [facility] for a ride back to facility.
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
== END 2025-01-11 03:09 | disposition home or self-care (01) ==
LOC: ANHED 02:29
PROVIDERS: Emergency Provider Physician Assistant
DX: S51.811A Laceration without foreign body of right forearm, initial encounter (principal); S61.411A Laceration without foreign body of right hand, initial encounter; W45.0XXA Nail entering through skin, initial encounter; Z23 Encounter for immunization
CPT/HCPCS: 12002; 90471; 90715; 99282; J2004